=== PATIENT | female | born 1945 | race Caucasian/White ===

== ENCOUNTER → 2017-04-30 | Outpatient (CLI) | payer MEDICARE, OTHER ==
--- NOTE | 2017-05-03 14:32 | MM ---
Reason for exam: screening (asymptomatic). Last mammogram was performed 1 year and 5 months ago. History: Patient is postmenopausal and has history of breast cancer at age 55. Family history of breast cancer in mother at age 78. Radiation therapy, March 01, 2001. Lumpectomy of the left breast, 2001. Took hormonal contraceptives for 3 years beginning at age 21. Took tamoxifen for 5 years beginning at age 55. Physical Findings: A clinical breast exam by your physician is recommended on an annual basis and results should be correlated with mammographic findings. MG 3D Screening Mammo W/Cad Bilateral CC and MLO view(s) were taken. Prior study comparison: December 11, 2015, bilateral MG 3d screening mammo w/cad. July 15, 2011, bilateral digital screening mammo w/CAD. There are scattered fibroglandular densities. No suspicious abnormality. Post therapy changes on the left. ASSESSMENT: Benign, BI-RAD 2 RECOMMENDATION: Routine screening mammogram of both breasts in 1 year.
== END | disposition home or self-care (01) ==
LOC: RADMAMWWP 08:36
PROVIDERS: ATTEND Obstetrics & Gynecology
DX: Z12.31 Encounter for screening mammogram for malignant neoplasm of breast (principal)
CPT/HCPCS: 77063; 77067

== ENCOUNTER → 2017-06-01 | Outpatient (CLI) | payer MEDICARE, OTHER ==
--- NOTE | 2017-06-01 10:24 | US ---
EXAMINATION TYPE: US transvaginal DATE OF EXAM: 06/01/2017 COMPARISON: NONE CLINICAL HISTORY: C50.919 History of Breast Cancer. Hx of breast cancer in 2001. Was on Tamoxifen, b ut not any more. No pain or discomfort. Patient states it is routine. TECHNIQUE: Transvaginal (TV). Date of LMP: DIFFERENTIAL SPECIALIST, EXAM MEASUREMENTS: Uterus: 8.6 x 4.5 x 3.3 cm Endometrial Stripe: 0.4 cm Right Ovary: 3.0 x 1.7 x 1.9 cm Left Ovary: 3.6 x 2.0 x 2.3 cm 1. Uterus: Retroverted Heterogeneous. Multiple lesions seen within. hypoechoic anterior left = 1.0 x 1.3 x 0.9 cm. Isoechoic mid - 1.7 x 1.5 x1.7 cm. Hypoechoic left =0.7 x 1.0 x 0.8 cm. Mid hypo echoic = 0.9 x 1.3 x 0.7 cm 2. Endometrium: possible lesion mixed lesion seen at fundal region = 0.8 x 0.7 x 0.6 cm 3. Right Ovary: Multiple cystic appearing lesions seen. Largest = 2.3 x 1.6 x 1.4 cm 4. Left Ovary: Multiple follicles seen. Largest = 1.6 cm 5. Bilateral Adnexa: wnl 6. Posterior cul-de-sac: no free fluid Cervix- wnl Heterogeneous uterus is seen with several ill-defined hypoechoic areas likely reflecting scattered fi broids some are submucosal and subserosal in location including intramural lesions present. Endometri um is not suspiciously thickened on sagittal images. On transverse imaging there is 7 mm focal round prominence could reflect small polyp, consider short-term ultrasound follow-up in 2-3 months time or possible hysterosonograph evaluation. No free fluid is seen in pelvic cul-de-sac. Right ovary is abnormal for postmenopausal female with irregular thin septated 2.3 cm cyst identified . There are smaller adjacent cysts felt present by technologist in the left ovary. I am more suspicio us for a larger cyst that has thin and thick walled septations. IMPRESSION: Abnormal appearance of both ovaries for postmenopausal female, cystic neoplasm cannot be excluded. Advise gynecology oncology referral. Consider MRI to further evaluate. Intrauterine fibroid s felt present.
== END | disposition home or self-care (01) ==
LOC: RADUSWWP 08:57
PROVIDERS: ATTEND Obstetrics & Gynecology
DX: D25.9 Leiomyoma of uterus, unspecified (principal); C50.919 Malignant neoplasm of unspecified site of unspecified female breast
CPT/HCPCS: 76830

== ENCOUNTER → 2017-07-05 | Outpatient (CLI) | payer MEDICARE, OTHER ==
--- NOTE | 2017-07-05 10:03 | US ---
EXAMINATION TYPE: US transvaginal DATE OF EXAM: 07/05/2017 COMPARISON: 06/01/2017 CLINICAL HISTORY: 72-year-old female D52.9. [employer], follow up from last ultrasound. No pain or discomfo rt. Hx of breast cancer. Was on tamoxifen, but not on it any more. TECHNIQUE: Transvaginal (TV). Date of LMP: [employer], FINDINGS: EXAM MEASUREMENTS: Uterus: 6.1 x 4.3 x 3.2 cm Endometrial Stripe: 0.3 cm Right Ovary: 3.4 x 1.7 x 2.2 cm Left Ovary: 2.9 x 1.8 x 2.5 cm 1. Uterus: Retroverted Heterogenous. Right posterior fundal hypoechoic lesion = 0.8 x 0.7 x 0.6 cm. Mid anterior body Isoechoic lesion = 1.9 x 1.4 x 1.3 cm. Mid anterior uterine fundus hypoechoic lesion = 0.7 x 0.7 x 0.6 cm. Right anterior fundal hypoechoic lesion = 1.2 x 0.9 x 1.0 cm 2. Endometrium: At fundal region, appears heterogenous and asymmetrically thickened up to 5 mm along the left cornua. 3. Right Ovary: Multiple cysts are present, largest = 1.7 x 1.5 x 1.8 cm 4. Left Ovary: Multiple cystic appearing lesions seen. Largest = 1.8 x 2.0 x 1.2 cm 5. Bilateral Adnexa: wnl 6. Posterior cul-de-sac: no free fluid Cervix- wnl IMPRESSION: 1. Retroverted, heterogeneous fibroid uterus, largest focal fibroid measures 1.9 cm. These appear to be primarily intramural. 2. The left fundal endometrium is focally thickened at 5 mm. This area was previously measured at 8 x 6 x 4 mm. The remainder of the endometrium is uniform at 3 mm. Continued follow-up recommended as a small, early endometrial lesion, including the possibility of endometrial carcinoma, is not excluded. 3. Prominent bilateral ovarian cysts measuring up to 2.0 cm. Atypical for a postmenopausal female. Th arnulfo can also continue to be reassessed on the patient's follow-up.
== END | disposition home or self-care (01) ==
LOC: RADUSWWP 08:12
PROVIDERS: ATTEND Obstetrics & Gynecology
DX: D25.9 Leiomyoma of uterus, unspecified (principal); N83.201 Unspecified ovarian cyst, right side; N83.202 Unspecified ovarian cyst, left side
CPT/HCPCS: 76830

== ENCOUNTER → 2017-07-17 | Outpatient (CLI) | payer MEDICARE, OTHER ==
[2017-07-17 12:27] LABS: Basophils % (A) 0 %; Eosinophils # (A) 0.3 k/uL (0-0.7); Eosinophils % (A) 4 %; HCT 38.7 % (34.0-46.0); HGB 12.8 gm/dL (11.4-16.0); Lymphocytes # (A) 1.3 k/uL (1.0-4.8); Lymphocytes % (A) 20 %; MCH 30.4 pg (25.0-35.0); MCHC 33.2 g/dL (31.0-37.0); MCV 91.8 fL (80.0-100.0); Mean Platelet Volume 7.1; Monocytes # (A) 0.3 k/uL (0-1.0); Monocytes % (A) 5 %; Neutrophils # (A) 4.4 k/uL (1.3-7.7); Neutrophils % (A) 68 %; Platelet Count 320 k/uL (150-450); RBC 4.22 m/uL (3.80-5.40); RDW 13.8 % (11.5-15.5); WBC 6.5 k/uL (3.8-10.6)
== END | disposition home or self-care (01) ==
LOC: LABWHC1 11:49
PROVIDERS: ATTEND Obstetrics & Gynecology
DX: Z01.818 Encounter for other preprocedural examination (principal); Z01.812 Encounter for preprocedural laboratory examination
CPT/HCPCS: 36415; 85025; 93005

== ENCOUNTER 2017-07-23 07:19 | Day surgery (SDC) | payer MEDICARE, OTHER ==
[2017-07-20 11:59] VITALS: BMI 25.9
--- NOTE | 2017-07-22 20:09 | P.HPOB ---
History of Present Illness H&P Date: 07/22/17 Chief Complaint: Possible endometrial polyp This is a 72-year-old female 2 para 2 who presents for dilation and curettage with hysteroscopy secondary to possible endometrial polyp on pelvic ultrasound. Her ultrasound was initially done to evaluate her ovaries due to her history of breast cancer. Her ultrasound showed a complex right ovarian cyst with septation measuring 2.3 cm in addition there were multiple small fibroids noted and a possible mixed lesions seen in the fundal area measuring approximately 0.8 cm. A repeat ultrasound approximately 1 month later showed that the right ovarian cyst had gone down to 1.8 cm and the left ovarian cyst was about the same size. The area within the endometrium now only measured 5 mm but there was still concern for possible polyp because it was thickened more than the rest of her lining. She will follow-up with repeat ultrasounds for her ovarian cysts but wishes to proceed with dilation and curettage with hysteroscopy to further evaluate her endometrial lining and possible polyp. Obstetrical history: . History of 2 vaginal deliveries. Gynecologic history: No history of sexual transmitted diseases. Social history: She is . 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. Review of Systems Constitutional: Denies chills, Denies fever Eyes: denies blurred vision, denies pain Ears, nose, mouth and throat: Denies headache, Denies sore throat Cardiovascular: Denies chest pain, Denies shortness of breath Respiratory: Denies cough Gastrointestinal: Denies abdominal pain, Denies diarrhea, Denies nausea, Denies vomiting Genitourinary: Denies abnormal vaginal bleeding, Denies dysuria, Denies hematuria Menstruation: Reports postmenopausal Musculoskeletal: Reports myalgias Integumentary: Denies pruritus, Denies rash Neurological: Denies numbness, Denies weakness Psychiatric: Denies anxiety, Denies depression Endocrine: Denies fatigue, Denies weight change Past Medical History Past Medical History: Cancer, Hearing Disorder / Deafness Additional Past Medical History / Comment(s): BREAST CA 2002. YUHAAVIATAM LT EAR. History of Any Multi-Drug Resistant Organisms: None Reported Past Surgical History: Breast Surgery, Tubal Ligation Additional Past Surgical History / Comment(s): LT LUMPECTOMY, RADIATION. D&C, multiple. COLONOSCOPY. Bilateral cataract extraction with lens insert Past Anesthesia/Blood Transfusion Reactions: No Reported Reaction Past Psychological History: No Psychological Hx Reported Smoking Status: Former smoker Past Alcohol Use History: Occasional Past Drug Use History: None Reported - Past Family History Mother Family Medical History: Cancer Additional Family Medical History / Comment(s): BREAST CA Medications and Allergies Home Medications Medication Instructions Recorded Confirmed Type B-Complex (Unknown Dose) 1 tab PO DAILY 07/20/17 History Multivitamins, Thera [Multivitamin 1 tab PO DAILY 07/20/17 07/20/17 History (formulary)] Allergies Allergy/AdvReac Type Severity Reaction Status Date / Time No Known Allergies Allergy Verified 07/20/17 11:41 Exam Osteopathic Statement: *. No significant issues noted on an osteopathic structural exam other than those noted in the History and Physical/Consult. HEENT: Within normal limits Heart: Regular rate and rhythm Lungs: Clear to auscultation bilaterally Abdomen: Soft, nontender Pelvic exam: Uterus is small, nontender, with no adnexal masses or tenderness palpated. Extremities: Negative Homans Assessment and Plan (1) Endometrial thickening on ultrasound Status: Acute Code(s): R93.8 - ABNORMAL FINDINGS ON DIAGNOSTIC IMAGING OF BODY STRUCTURES SNOMED Code(s): 344659329 (2) Endometrium, polyp Narrative/Plan: Possible Status: Acute Code(s): N84.0 - POLYP OF CORPUS UTERI SNOMED Code(s): 19490761 Plan: Proceed with dilation and curettage with hysteroscopy. I have discussed the risks, benefits, and alternative therapies for the above- mentioned procedure and for both sedation/anesthesia as well as necessary blood products administration, if indicated, as they pertain to this patient. The patient has indicated her understanding and acceptance of the risks and procedures discussed.
[~2017-07-23 07:19] MED LIST: LACTATED RINGERS 1,000 ML IV SCH; MORPHINE SULFATE 2 MG/ML SYRINGE IV PRN; ONDANSETRON 4 MG/2 ML VIAL IVP PRN; Pre Op ABX Message 1 EACH MISC MISCELLANE ONE
[2017-07-23] MEDS ORDERED: LIDOCAINE 1% 20 ML VIAL (10MG/ML) FOR IV START INTRADERMA ONE (08:09)
[2017-07-23] MEDS ORDERED: LABETALOL 5 MG/ML VIAL MDV IV ONE (08:11)
[2017-07-23] MEDS ORDERED: MIDAZOLAM 2 MG/2 ML VIAL IV ONE ×2 (08:13→08:24)
[2017-07-23] MEDS ORDERED: fentaNYL (PF) 50 MCG/ML 2 ML AMP ONE (08:26)
[2017-07-23] MEDS ORDERED: MIDAZOLAM 2 MG/2 ML VIAL ONE (08:26)
[2017-07-23] MEDS ORDERED: KETOROLAC 30 MG/ML 1 ML VIAL ONE (08:26)
[2017-07-23] MEDS ORDERED: PROPOFOL 10 MG/ML 20 ML VIAL IV ONE (08:26)
--- NOTE | 2017-07-23 09:05 | P.OP ---
Date of Procedure: 07/23/17 Preoperative Diagnosis: Endometrial thickening, possible endometrial polyp Postoperative Diagnosis: Same Procedure(s) Performed: Dilation and curettage with hysteroscopy Anesthesia: other (Mask general) Surgeon: Janet Branch Estimated Blood Loss (ml): 5 Pathology: other (Endometrial curettings) Condition: stable Disposition: same day Indications for Procedure: This is a 72-year-old female 2 para 2 who presents for dilation and curettage with hysteroscopy secondary to possible endometrial polyp on pelvic ultrasound. Her ultrasound was initially done to evaluate her ovaries due to her history of breast cancer. Her ultrasound showed a complex right ovarian cyst with septation measuring 2.3 cm in addition there were multiple small fibroids noted and a possible mixed lesions seen in the fundal area measuring approximately 0.8 cm. A repeat ultrasound approximately 1 month later showed that the right ovarian cyst had gone down to 1.8 cm and the left ovarian cyst was about the same size. The area within the endometrium now only measured 5 mm but there was still concern for possible polyp because it was thickened more than the rest of her lining. She will follow-up with repeat ultrasounds for her ovarian cysts but wishes to proceed with dilation and curettage with hysteroscopy to further evaluate her endometrial lining and possible polyp. Operative Findings: A bicornate uterus is noted. Uterus is sounded to 8-1/2 cm. In the left horn there was a very small polyp noted. In the right horn there was what appeared to be a submucosal fibroid noted at the entrance to the horn. Otherwise very atrophic endometrium was noted both tubal ostia were visualized. Very scant endometrial tissue was obtained. Description of Procedure: The patient was taken to the operating room where she is placed in the dorsal lithotomy position. She was prepped and draped in the normal sterile fashion. Her bladder was drained with a catheter and then removed. Examination was performed under anesthesia. Uterus is found to be small, anteverted, with no adnexal masses palpated. Next a weighted speculum was placed in the patient's vagina and a right angle retractor was used to visualize the cervix. The anterior lip of the cervix was grasped with a single-tooth tenaculum. Next the cervix was gently dilated with a L[place] dilator and then the uterus was sounded to 8-1/2 cm. Next the cervix was gently dilated further with L[place]ola dilators until a hysteroscope could be passed. Hysteroscopy was performed using normal saline. The above-noted findings were made and pictures were taken. Next a polyp forceps was introduced and a very scant amount of tissue was obtained. Next a medium-size sharp curet was introduced and sharp curettage was performed until a gritty texture was noted. Minimal further tissue was obtained. The tissue was removed from the vagina and sent to pathology. Next the single- tooth tenaculum was removed and no bleeding was noted. All instruments are removed from the vagina. All sponge and needle counts are correct. The patient is then taken to the recovery room in stable condition.
[2017-07-23 09:16] VITALS: TEMP 96.8
[2017-07-23 09:45] VITALS: RESP 18
[2017-07-23 10:13] VITALS: BP 173/76; PULSE 59
== END 2017-07-23 10:29 | disposition home or self-care (01) ==
LOC: OR 07:19
PROVIDERS: ATTEND Obstetrics & Gynecology
DX: N84.0 Polyp of corpus uteri (principal); N85.8 Other specified noninflammatory disorders of uterus; R93.8 Abnormal findings on diagnostic imaging of other specified body structures; Q51.3 Bicornate uterus; N83.201 Unspecified ovarian cyst, right side; N83.202 Unspecified ovarian cyst, left side; D25.9 Leiomyoma of uterus, unspecified; Z85.3 Personal history of malignant neoplasm of breast; H91.92 Unspecified hearing loss, left ear; Z79.899 Other long term (current) drug therapy; Z96.1 Presence of intraocular lens; Z87.891 Personal history of nicotine dependence
CPT/HCPCS: 88305; 58558; J2250; J2405; J3010; J1885; J2704

== ENCOUNTER → 2017-09-06 | Outpatient (CLI) | payer MEDICARE, OTHER ==
--- NOTE | 2017-09-06 12:03 | US ---
EXAMINATION TYPE: US transvaginal DATE OF EXAM: 09/06/2017 COMPARISON: 07/05/2017 CLINICAL HISTORY: 72-year-old female N83.20 Previous Ovarian Cysts. Post menopausal patient, follow u p previous abnormal, patient states no symptoms, D&C 1 month ago, 2, para 2, history of breas t CA TECHNIQUE: Transvaginal exam only per ordering physician. Date of LMP: 30 years ago Findings: Uterus: Retroverted measuring 6.0 x 3.2 x 4.6 cm Endometrial Stripe: 0.3 cm Right Ovary: 2.8 x 2.0 x 1.8 cm Left Ovary: 2.8 x 2.7 x 2.2 cm 1. Uterus: retroverted, heterogeneous with suggestive of underlying fibroids, largest measuring 1.8 cm along the anterior uterine body, intramural in location. Multiple hypoechoic and isoechoic lesions with largest mid anterior = 1.7 x 1.1 x 1.8cm 2. Endometrium: wnl 3. Right Ovary: multiple cysts, largest = 1.4cm 4. Left Ovary: multiple cysts, largest = 2.0cm 5. Bilateral Adnexa: wnl 6. Posterior cul-de-sac: wnl IMPRESSION: 1. Retroverted fibroid uterus. Largest fibroid is intramural along the anterior body measuring 1.8 cm . 2. Thin endometrial stripe. The previously seen asymmetric thickening is no longer appreciated. 3. Bilateral ovarian cysts. The largest on the right measures 1.4 cm (versus 1.8 cm, previously) and largest on the left measuring 2.0 cm (unchanged). Annual surveillance can be considered.
== END | disposition home or self-care (01) ==
LOC: RADUSWWP 08:05
PROVIDERS: ATTEND Obstetrics & Gynecology
DX: N83.201 Unspecified ovarian cyst, right side (principal); N83.202 Unspecified ovarian cyst, left side; D25.1 Intramural leiomyoma of uterus
CPT/HCPCS: 76830

== ENCOUNTER → 2018-05-26 | Outpatient (CLI) | payer MEDICARE ==
--- NOTE | 2018-05-27 11:51 | MM ---
Reason for exam: screening (asymptomatic). Last mammogram was performed 1 year and 1 month ago. History: Patient is postmenopausal and has history of breast cancer at age 55. Family history of breast cancer in mother at age 78. Radiation therapy, March 01, 2001. Lumpectomy of the left breast, 2001. Took hormonal contraceptives for 3 years beginning at age 21. Took tamoxifen for 5 years beginning at age 55. Physical Findings: A clinical breast exam by your physician is recommended on an annual basis and results should be correlated with mammographic findings. MG 3D Screening Mammo W/Cad Bilateral CC and MLO view(s) were taken. Prior study comparison: April 30, 2017, bilateral MG 3d screening mammo w/cad. December 11, 2015, bilateral MG 3d screening mammo w/cad. There are scattered fibroglandular densities. No suspicious abnormality. Left breast post threrapy change. No significant changes when compared with prior studies. ASSESSMENT: Benign, BI-RAD 2 RECOMMENDATION: Routine screening mammogram of both breasts in 1 year.
== END ==
LOC: RADMAMWWP 11:31
PROVIDERS: ATTEND Obstetrics & Gynecology
DX: Z12.31 Encounter for screening mammogram for malignant neoplasm of breast (principal)
CPT/HCPCS: 77063; 77067

== ENCOUNTER → 2019-08-28 | Outpatient (CLI) | payer MEDICARE ==
--- NOTE | 2019-08-30 11:01 | MM ---
Reason for exam: screening (asymptomatic). Last mammogram was performed 1 year and 3 months ago. History: Patient is postmenopausal and has history of breast cancer at age 55. Family history of breast cancer in mother at age 78. Radiation therapy, March 01, 2001. Lumpectomy of the left breast, 2001. Took hormonal contraceptives for 3 years beginning at age 21. Took tamoxifen for 5 years beginning at age 55. Physical Findings: A clinical breast exam by your physician is recommended on an annual basis and results should be correlated with mammographic findings. MG 3D Screening Mammo W/Cad Bilateral CC and MLO view(s) were taken. Prior study comparison: May 26, 2018, bilateral MG 3d screening mammo w/cad. April 30, 2017, bilateral MG 3d screening mammo w/cad. There are scattered fibroglandular densities. No significant changes when compared with prior studies. ASSESSMENT: Benign, BI-RAD 2 RECOMMENDATION: Routine screening mammogram of both breasts in 1 year.
== END | disposition home or self-care (01) ==
LOC: RADMAMWWP 13:08
PROVIDERS: ATTEND Obstetrics & Gynecology
DX: Z12.31 Encounter for screening mammogram for malignant neoplasm of breast (principal)
CPT/HCPCS: 77063; 77067

== ENCOUNTER 2020-02-21 18:16 | Emergency (ER) | payer MEDICARE ==
[2020-02-21] MEDS ORDERED: DIPH,PERTUS(ACELL)TETVAC-LF 0.5 ML VIAL IM ONE (18:37)
[2020-02-21] MEDS ORDERED: BACITRACIN OINT 1 EACH PACKET TOPICAL ONE (18:37)
[2020-02-21] MEDS ORDERED: LIDOCAINE 1% INJ 10MG/ML (20 ML MDV) SQ ONE (18:37)
[2020-02-21 19:03] VITALS: TEMP 97.9
--- NOTE | 2020-02-21 19:26 | CT ---
EXAMINATION TYPE: CT brain brant sánchez con DATE OF EXAM: 02/21/2020 COMPARISON: None HISTORY: Fall, head laceration. CT DLP: 1287.4 mGycm Automated exposure control for dose reduction was used. Ventricles have normal size. There is no mass effect nor midline shift. There is no sign of intracran ial hemorrhage. Calvarium is intact. There is no evidence of cerebral edema. There is right lateral f rontal scalp laceration and soft tissue swelling. The cervical vertebra have normal alignment. There is degenerative spur formation anteriorly from C3 to C7. Facet joints are intact. There is mild multilevel cervical hypertrophic facet arthropathy. The re is no evidence of a fracture. There is normal aeration of the mastoid sinuses. The skull base is i ntact. IMPRESSION: Spondylotic changes in the cervical spine. No fracture. Negative CT scan of the brain. No evidence of acute intracranial abnormality. Right lateral frontal scalp laceration and hematoma.
[2020-02-21] MEDS ORDERED: cloNIDine HCL 0.2 MG TAB PO STA (19:50)
[2020-02-21 20:04] VITALS: RESP 18
[2020-02-21 20:33] VITALS: BP 233/111; PULSE 92
--- NOTE | 2020-02-21 20:41 | ED ---
Fall HPI - General Chief Complaint: Fall Stated Complaint: fall/head lac Time Seen by Provider: 02/21/20 18:26 Source: patient Mode of arrival: wheelchair - History of Present Illness Initial Comments: Patient is a 74-year-old female presenting to the emergency department after falling at her house just prior to arrival. Patient states she was carrying in groceries from her car when her big toe got caught on the lower doorway and she fell forward hitting the right side of her forehead on the wall in front of her. There was no loss of consciousness, she denies being on blood thinners. Patient has an obvious laceration to the right side of her forehead extending into her scalp. She admits to a mild headache, no dizziness, no blurry vision. She does admit to some mild left great toe pain but states she has full range of motion and states it feels "fine." She denies any abdominal pain, no nausea or vomiting. She denies any other pain from this fall other than her forehead. She has no further complaints at this time. On arrival to the ER, patient was hypertensive at 219/112, respiratory rate is are normal. Patient states she has never taken medication for hypertension but states she has not seen a regular doctor in many years. - Related Data Home Medications Medication Instructions Recorded Confirmed Multivitamins, Thera [Multivitamin 1 tab PO DAILY 07/20/17 07/20/17 (formulary)] Allergies Allergy/AdvReac Type Severity Reaction Status Date / Time No Known Allergies Allergy Verified 02/21/20 20:35 Review of Systems ROS Statement: Those systems with pertinent positive or pertinent negative responses have been documented in the HPI. ROS Other: All systems not noted in ROS Statement are negative. Past Medical History Past Medical History: Cancer History of Any Multi-Drug Resistant Organisms: None Reported Additional Past Surgical History / Comment(s): lumpectomy, D&C Past Psychological History: No Psychological Hx Reported Smoking Status: Never smoker Past Alcohol Use History: Daily Past Drug Use History: None Reported General Exam - General Exam Comments Initial Comments: GENERAL: Patient is well-developed and well-nourished. Patient is nontoxic and in no acute distress. HEAD: Patient has an obvious laceration on the right side of her forehead extending up frausto into the right scalp area. There is some mild bleeding that is being controlled with a bandage at this time. She does have a small hematoma on the right forehead as well. No signs of basal skull fracture. No other areas of hematoma.. EYES: Pupils equal round and reactive to light, extraocular movements intact, sclera anicteric, conjunctiva are normal. Eyelids were unremarkable. ENT: TMs normal, nares patent, oropharynx clear without exudates. Moist mucous membranes. NECK: Normal range of motion, supple without lymphadenopathy or JVD. No midline tenderness. LUNGS: Unlabored respirations. Breath sounds clear to auscultation bilaterally and equal. No wheezes rales or rhonchi. HEART: Regular rate and rhythm without murmurs, rubs or gallops. ABDOMEN: Soft, nontender, normoactive bowel sounds. No guarding, no rebound. No masses appreciated. : Deferred MUSCULOSKELETAL: Mild pain with range of motion of the left great toe, no obvious swelling or deformity. Normal extremities with adequate strength and normal range of motion, no pitting or edema. No clubbing or cyanosis. NEUROLOGICAL: Patient is alert and oriented x 3. Motor and sensory are also intact. Cranial nerves II through XII grossly intact. Symmetrical smile. Normal speech, normal gait. PSYCH: Normal mood, normal affect. SKIN: Warm, Dry, normal turgor. Patient has a 12 cm laceration starting at her right side of the forehead extending upward into the right side of her scalp. There is some mild to moderate bleeding, this is controlled with pressure and a bandage. Limitations: no limitations Course Vital Signs 02/21/20 02/21/20 02/21/20 18:17 19:00 20:03 Temperature 98.9 F 97.9 F Pulse Rate 105 H 87 94 Respiratory 20 16 18 Rate Blood Pressure 219/120 248/127 250/112 O2 Sat by Pulse 98 96 97 Oximetry 02/21/20 20:32 Temperature Pulse Rate 92 Respiratory 18 Rate Blood Pressure 233/111 O2 Sat by Pulse 97 Oximetry Procedures - Laceration Laceration #1 Consent Obtained: verbal consent Indication: laceration Site: scalp (Right side of scalp extending into the right forehead.) Size (cm): 12 Description: linear Depth: simple, single layer Anesthetic Used: lidocaine 1% Anesthesia Technique: local infiltration Amount (mls): 9 Pre-repair: irrigated extensively Type of Sutures: nylon Size of Sutures: 5-0 Number of Sutures: 7 Technique: simple, interrupted Patient Tolerated Procedure: well Additional Comments: 8 jeannie were used to close part of the wound in the scalp area, 7 sutures were used to close the rest of the wound on the forehead. Patient tolerated procedure well. Medical Decision Making - Medical Decision Making Patient is 74-year-old female here after she tripped and fell forward hitting her right side of her forehead on the wall. She did have an extensive laceration to the right side of her scalp and forehead, measuring 12 cm. This area was cleaned, closed with 8 jeannie and 7 sutures. Patient tolerated procedure well. CT of the brain and C-spine show no fractures of the C-spine, no evidence of acute intracranial abnormality, does show a right lateral frontal scalp laceration and hematoma. Patient was hypertensive upon arrival, continue monitoring her blood pressure did remain hypertensive. She states she has never taken medication for hypertension. I did give her 0.2 clonidine in the ER, I did want her to stay to be monitored for decrease her blood pressure however patient wants to go home. She states that her headache is very minimal, she has no other symptoms at this time and wants to go home to rest. She states she will follow-up with her PCP regarding the hypertension. Patient is stable for discharge. She will have stitches and jeannie removed in approximately 7-10 days. Patient is in agreement with this plan of care. Return parameters were discussed with the patient she verbalized understanding. Patient is being drove home by her . Case discussed with Dr. Sotelo. Disposition Clinical Impression: Fall, Traumatic hematoma of forehead, Laceration of forehead, right, complicated Disposition: HOME SELF-CARE Condition: Stable Instructions (If sedation given, give patient instructions): Care For Your Stitches (ED) Additional Instructions: Please return to the Emergency Department if symptoms worsen or any other concerns. Keep wound clean and dry. May wash hair as normal. Stitches and jeannie need to be removed in 7-10 days. Please follow-up with your regular doctor regarding hypertension. Is patient prescribed a controlled substance at d/c from ED?: No Referrals: None,Stated [Primary Care Provider] - 1-2 days Didi Daly MD [STAFF PHYSICIAN] - 1-2 days Katherine Liriano MD [REFERRING] - 1-2 days
== END 2020-02-21 20:46 | disposition home or self-care (01) ==
LOC: EC 18:16
DX: S01.01XA Laceration without foreign body of scalp, initial encounter (principal); S01.81XA Laceration without foreign body of other part of head, initial encounter; I10 Essential (primary) hypertension; Z23 Encounter for immunization; Z85.9 Personal history of malignant neoplasm, unspecified; W01.198A Fall on same level from slipping, tripping and stumbling with subsequent striking against other object, initial encounter; Y93.89 Activity, other specified; Y92.009 Unspecified place in unspecified non-institutional (private) residence as the place of occurrence of the external cause
CPT/HCPCS: 72125; 70450; 90715; 99283; 12004; 90471; J2001

== ENCOUNTER → 2020-05-10 | Outpatient (CLI) | payer MEDICARE ==
--- NOTE | 2020-05-10 14:57 | XR ---
EXAM TYPE: LUMBAR SPINE X RAY SERIES COMPARISON: NONE HISTORY: Pain TECHNIQUE: 4 views are submitted. FINDINGS: Alignment is anatomic. The pedicles are intact. The transverse processes are intact. There is supe rior endplate compression deformities at T12, L1, L2 and to a lesser extent L3 of indeterminate age. No prior exams for comparison. Diffuse osteopenia. Severe multilevel degenerative disc disease and fa cet arthropathy. Foraminal encroachment L4-5 and L5-S1. Vascular calcification seen. IMPRESSION: 1. Diffuse osteopenia with severe multilevel degenerative disc disease. 2. Age-indeterminate multiple superior endplate mild compression fractures. Correlate clinically.
== END | disposition home or self-care (01) ==
LOC: RADXRMAIN 14:27
PROVIDERS: ATTEND Family Medicine
DX: M51.36 Other intervertebral disc degeneration, lumbar region (principal); M85.88 Other specified disorders of bone density and structure, other site; S32.000A Wedge compression fracture of unspecified lumbar vertebra, initial encounter for closed fracture
CPT/HCPCS: 72100

== ENCOUNTER → 2020-08-29 | Outpatient (CLI) | payer MEDICARE ==
--- NOTE | 2020-08-30 12:21 | MM ---
Reason for exam: screening (asymptomatic). Last mammogram was performed 1 year ago. History: Patient is postmenopausal, has history of breast cancer at age 55, and history of other cancer. Family history of breast cancer in mother at age 78. Radiation therapy, March 01, 2001. Lumpectomy of the left breast, 2001. Took hormonal contraceptives for 3 years beginning at age 21. Took tamoxifen for 5 years beginning at age 55. Physical Findings: A clinical breast exam by your physician is recommended on an annual basis and results should be correlated with mammographic findings. MG 3D Screening Mammo W/Cad Bilateral CC and MLO view(s) were taken. Prior study comparison: August 28, 2019, bilateral MG 3d screening mammo w/cad. May 26, 2018, bilateral MG 3d screening mammo w/cad. There are scattered fibroglandular densities. Post operative left change. ASSESSMENT: Negative, BI-RAD 1 RECOMMENDATION: Routine screening mammogram of both breasts in 1 year.
== END | disposition home or self-care (01) ==
LOC: RADMAMWWP 08:01
PROVIDERS: ATTEND Obstetrics & Gynecology
DX: Z12.31 Encounter for screening mammogram for malignant neoplasm of breast (principal); Z78.0 Asymptomatic menopausal state; Z85.3 Personal history of malignant neoplasm of breast; Z80.3 Family history of malignant neoplasm of breast
CPT/HCPCS: 77063; 77067

== ENCOUNTER 2020-09-13 08:25 | Day surgery (SDC) | payer MEDICARE ==
[2020-09-10 14:35] VITALS: BMI 24.5
[~2020-09-13 08:25] MED LIST changes: +LIDOCAINE 1% (10MG/ML) FOR IV START INTRADERMA PRN; -MORPHINE SULFATE 2 MG/ML SYRINGE IV PRN; -ONDANSETRON 4 MG/2 ML VIAL IVP PRN; -Pre Op ABX Message 1 EACH MISC MISCELLANE ONE
[2020-09-13] MEDS ORDERED: LACTATED RINGERS 1,000 ML IV ONE (08:41)
[2020-09-13 08:48] VITALS: TEMP 97.8
[2020-09-13] MEDS ORDERED: PROPOFOL 10 MG/ML 20 ML VIAL IV ONE (09:32)
--- NOTE | 2020-09-13 09:45 | P.PCN ---
Date of Procedure: 09/13/20 Procedure(s) Performed: BRIEF HISTORY: Patient is a 75-year-old pleasant white female scheduled for an elective colonoscopy as a part of screening for colorectal neoplasia. Last colonoscopy was 10 years ago. PROCEDURE PERFORMED: Colonoscopy. PREOPERATIVE DIAGNOSIS: Screening for colon cancer. IV sedation per Anesthesia. PROCEDURE: After informed consent was obtained, the patient, was brought into the endoscopy unit. IV sedation was administered by Anesthesia under continuous monitoring. Digital rectal examination was normal. Initially the Olympus CF-160 flexible video colonoscope was then inserted in the rectum, gradually advanced into the cecum without any difficulty. Careful examination was performed as the scope was gradually being withdrawn. Ileocecal valve and the appendiceal orifice were visualized and appeared normal. Prep was excellent. Mucosa of the cecum, ascending colon, transverse colon, descending colon, sigmoid colon, and rectum appeared normal. RS sigmoid diverticulosis seen. Retroflexion was performed in the rectum and small internal hemorrhoids were seen. The patient tolerated the procedure well. IMPRESSION: Normal-appearing colon from rectum to cecum with no evidence of colorectal neoplasia . Moderate sigmoid diverticulosis Small internal hemorrhoids RECOMMENDATIONS: Findings of this examination were discussed with the patient as well as her family. She was advised to be a high-fiber diet..
[2020-09-13 10:03] VITALS: BP 166/75; PULSE 78; RESP 17
== END 2020-09-13 10:26 | disposition home or self-care (01) ==
LOC: ORWHC2ENDO 08:25
PROVIDERS: ATTEND Internal Medicine Gastroenterology
DX: Z12.11 Encounter for screening for malignant neoplasm of colon (principal); K57.30 Diverticulosis of large intestine without perforation or abscess without bleeding; K64.8 Other hemorrhoids; I10 Essential (primary) hypertension; Z87.891 Personal history of nicotine dependence; Z85.3 Personal history of malignant neoplasm of breast; Z79.891 Long term (current) use of opiate analgesic; Z79.899 Other long term (current) drug therapy
CPT/HCPCS: J2704; G0121

== ENCOUNTER → 2021-08-07 | Outpatient (CLI) | payer MEDICARE ==
--- NOTE | 2021-08-08 11:48 | CT ---
CT angiogram bilateral lower extremities HISTORY: Pain in legs Helical acquisition performed pre- and postadministration of 70 cc Isovue-370 IV from the level of th e distal thoracic aorta through the lower extremities. Three-dimensional reconstructions performed on an alternate workstation and reviewed. No comparisons. Automated exposure control for dose reduction , DLP 2165 mGycentimeters There are atheromatous changes of the abdominal aorta, common iliac, internal and external iliac and common femoral vessels. The celiac axis shows a stenosis with proximally with poststenotic dilatation , is patent. The superior mesenteric artery is widely patent. Bilateral renal arteries enhance, there is atheromatous stenosis of the proximal left renal artery and proximal right renal artery. The infe rior mesenteric artery is patent. Common iliac arteries, external iliac arteries are patent, internal iliac artery on the right shows e nhancement, internal iliac artery on the left shows proximal occlusion, there may be some retrograde enhancement. On the left, the deep and superficial femoral arteries are patent, suspect some atheromatous plaque a t the proximal superficial femoral artery, there are tandem stenoses of the superficial femoral arter y on the left which is diminutive. Atheromatous changes extend to the level of Monroe's canal, there is occlusion at this level, reconstitution of the popliteal artery is noted above the level of the kn ee. The anterior tibial artery and posterior tibial artery are occluded. Peroneal artery extends phyllis pherally to the level of the ankle. There is extensive subcutaneous edema present. Soft tissue calcif ications are noted within the subcutaneous soft tissues. On the right the proximal superficial femoral artery is occluded. Atheromatous changes are present. T he deep femoral artery is patent. There is reconstitution of popliteal artery above the level of the knee. Atheromatous changes present in the popliteal artery. The peroneal artery is patent. Anterior t ibial artery enhances proximally is not well seen to enhance beyond this level. Posterior tibial maty ry is occluded. Some segmental reconstitution present at the anterior tibial artery peripherally, rec onstitution of the dorsalis pedis is present distally. Subcutaneous edema changes present. Lung bases are clear. Kidneys enhance symmetrically. No evident abdominal mass or ascites. There is n o retroperitoneal adenopathy. No bowel obstruction. Diverticular changes are extensive within the col on especially the sigmoid region. Uterus and adnexal structures are remarkable for cystic changes wit hin the ovaries somewhat symmetric fashion, calcification is noted associated with the right ovary. U rinary bladder is normal. There is no pelvic adenopathy or free fluid. Urinary bladder is within norm al limits. IMPRESSION: Extensive peripheral vascular occlusive disease as described.
== END | disposition home or self-care (01) ==
LOC: RADCTMAIN 15:49
PROVIDERS: ATTEND Family Medicine
DX: I70.213 Atherosclerosis of native arteries of extremities with intermittent claudication, bilateral legs (principal)
CPT/HCPCS: 82565; 84520; 36415; 73706; Q9967

== ENCOUNTER → 2021-09-01 | Outpatient (CLI) | payer MEDICARE ==
--- NOTE | 2021-09-02 11:32 | MM ---
Reason for Exam: Screening (asymptomatic). Last screening mammogram was performed 12 month(s) ago. Patient History: Menarche at age 9. First Full-Term at age 21. Postmenopausal. Breast cancer, age 55. Other cancer. Previous chest radiation therapy at age 55. Hormonal Contraceptives for 3 years from age 21 until age 24. Tamoxifen for 5 years from age 55 until age 60. 2001, Lumpectomy on the Left side. 03/01/2001, Radiation Therapy. Mother had breast cancer, age 78. Prior Study Comparison: 05/26/2018 Bilateral Screening Mammogram, [facility]. 08/28/2019 Bilateral Screening Mammogram, [facility]. 08/29/2020 Bilateral Screening Mammogram, [facility]. Tissue Density: There are scattered fibroglandular densities. Findings: Analyzed By CAD. There is no suspicious group of microcalcifications or new suspicious mass in either breast. Posttherapy changes of left breast. No significant changes from prior examination. Overall Assessment: Benign, BI-RAD 2 Management: Screening Mammogram of both breasts in 1 year. A clinical breast exam by your physician is recommended on an annual basis and results should be correlated with mammographic findings. Electronically signed and approved by: Volodymyr Lopez D.O.
== END | disposition home or self-care (01) ==
LOC: RADMAMWWP 14:44
PROVIDERS: ATTEND Obstetrics & Gynecology
DX: Z12.31 Encounter for screening mammogram for malignant neoplasm of breast (principal); Z80.3 Family history of malignant neoplasm of breast; Z78.0 Asymptomatic menopausal state
CPT/HCPCS: 77063; 77067

== ENCOUNTER 2021-12-05 05:51 | Day surgery (SDC) | payer MEDICARE ==
[2021-12-04 10:07] VITALS: BMI 24.1
[2021-12-05] MEDS ORDERED: SODIUM CHLORIDE 0.9% 1,000 ML in EMPTY BAG 1 BAG IV ONE (05:53)
[2021-12-05] MEDS ORDERED: SODIUM CHLORIDE 0.9% 1,000 ML IV ONE (06:10)
[2021-12-05 06:34] LABS: Basophils # (A) 0.1 k/uL (0-0.2); Basophils % (A) 1 %; Eosinophils # (A) 0.5 k/uL (0-0.7); Eosinophils % (A) 10 %; HCT 35.6 % (34.0-46.0); HGB 12.4 gm/dL (11.4-16.0); Lymphocytes # (A) 1.1 k/uL (1.0-4.8); Lymphocytes % (A) 21 %; MCH 32.4 pg (25.0-35.0); MCHC 34.9 g/dL (31.0-37.0); MCV 92.8 fL (80.0-100.0); Mean Platelet Volume 7.7; Monocytes # (A) 0.3 k/uL (0-1.0); Monocytes % (A) 6 %; Neutrophils # (A) 3.3 k/uL (1.3-7.7); Neutrophils % (A) 61 %; Platelet Count 371 k/uL (150-450); RBC 3.84 m/uL (3.80-5.40); RDW 12.6 % (11.5-15.5); WBC 5.5 k/uL (3.8-10.6)
[2021-12-05 06:50] LABS: African American GFR (CKD) >90 (>60 ml/min/1.73 sqM); Anion Gap 6 mmol/L; Blood Urea Nitrogen 16 mg/dL (7-17); Calcium 8.7 mg/dL (8.4-10.2); Carbon Dioxide 26 mmol/L (22-30); Chloride 101 mmol/L (98-107); Glucose 93 mg/dL (74-99); Non-African American GFR(CKD) 84 (>60 ml/min/1.73 sqM); Potassium 4.2 mmol/L (3.5-5.1); Sodium 133 mmol/L (137-145)
[2021-12-05 06:55] VITALS: RESP 16; TEMP 99
--- NOTE | 2021-12-05 07:38 | P.GSHP ---
History of Present Illness H&P Date: 12/05/21 Chief Complaint: lower extremity pain with ambulation 76 year old female with history of pain with ambulation after 1-1.5 blocks. States pain in her right calf and sometimes at night as well. She had arterial doppler which demonstrated significant occlusive disease of the bilateral superficial femoral arteries. She then was sent for CTA with runoff that showed occlusion of the right SFA with reconstitution above knee. She presents today for angiogram and possible atherectomy, PTBA or stenting. She denies any fevers, chills, chest pain or shortness of breath. - Review of Systems All systems: negative (what is mentioned in the PMH or HPI) Past Medical History Past Medical History: Cancer, Hypertension Additional Past Medical History / Comment(s): BREAST CANCER, History of Any Multi-Drug Resistant Organisms: None Reported Past Surgical History: Breast Surgery, Tonsillectomy Additional Past Surgical History / Comment(s): LT lumpectomy, D&C, COLONOSCOPY, BILAT CATARACTS REMOVED WITH LENS IMPLANTS Past Anesthesia/Blood Transfusion Reactions: No Reported Reaction Smoking Status: Never smoker - Past Family History Mother Family Medical History: No Reported History Medications and Allergies Home Medications Medication Instructions Recorded Confirmed Type Multivitamins, Thera [Multivitamin 1 tab PO DAILY 07/20/17 12/05/21 History (formulary)] Biotin 5 mg PO DAILY 09/10/20 12/05/21 History Calcium Carbonate [Calcium] 600 mg PO DAILY 09/10/20 12/05/21 History Cholecalciferol [Vitamin D3 (25 50 mcg PO DAILY 09/10/20 12/05/21 History Mcg = 1000 Iu)] Losartan/Hydrochlorothiazide 1 tab PO DAILY 09/10/20 12/05/21 History [Losartan-Hctz 100-25 mg Tab] Magnesium 400 mg PO DAILY 09/10/20 12/05/21 History amLODIPine BESYLATE 5 mg PO QAM 09/10/20 12/05/21 History Allergies Allergy/AdvReac Type Severity Reaction Status Date / Time No Known Allergies Allergy Verified 12/05/21 06:16 Surgical - Exam Vital Signs Temp Pulse Resp BP Pulse Ox 99 F 94 16 177/74 94 L 12/05/21 06:50 12/05/21 06:50 12/05/21 06:50 12/05/21 06:50 12/05/21 06:50 - General well developed, well nourished, no distress - Eyes PERRL, normal ocular movement - ENT normal pinna - Neck no masses - Respiratory normal expansion, normal respiratory effort - Cardiovascular Rhythm: regular - Abdomen Abdomen: soft, non tender - Integumentary no rash, no growths - Neurologic normal coordination, normal sensation - Musculoskeletal normal gait - Psychiatric oriented to time, oriented to person, oriented to place Results - Labs 12/05/21 06:20 12/05/21 06:20 Abnormal Lab Results - Last 24 Hours (Table) 12/05/21 Range/Units 06:20 Sodium 133 L (137-145) mmol/L Diabetes panel 12/05/21 Range/Units 06:20 Sodium 133 L (137-145) mmol/L Potassium 4.2 (3.5-5.1) mmol/L Chloride 101 (98-107) mmol/L Carbon Dioxide 26 (22-30) mmol/L BUN 16 (7-17) mg/dL Creatinine 0.69 (0.52-1.04) mg/dL Glucose 93 (74-99) mg/dL Calcium 8.7 (8.4-10.2) mg/dL Calcium panel 12/05/21 Range/Units 06:20 Calcium 8.7 (8.4-10.2) mg/dL Pituitary panel 12/05/21 Range/Units 06:20 Sodium 133 L (137-145) mmol/L Potassium 4.2 (3.5-5.1) mmol/L Chloride 101 (98-107) mmol/L Carbon Dioxide 26 (22-30) mmol/L BUN 16 (7-17) mg/dL Creatinine 0.69 (0.52-1.04) mg/dL Glucose 93 (74-99) mg/dL Calcium 8.7 (8.4-10.2) mg/dL Adrenal panel 12/05/21 Range/Units 06:20 Sodium 133 L (137-145) mmol/L Potassium 4.2 (3.5-5.1) mmol/L Chloride 101 (98-107) mmol/L Carbon Dioxide 26 (22-30) mmol/L BUN 16 (7-17) mg/dL Creatinine 0.69 (0.52-1.04) mg/dL Glucose 93 (74-99) mg/dL Calcium 8.7 (8.4-10.2) mg/dL Assessment and Plan Assessment: 1. Lower extremity claudication [place] 3 2. Bilateral superficial femoral artery occlusive disease 3. HTN Plan: To the endovascular suite for right lower extremity atherectomy and possible stenting.
[2021-12-05] MEDS ORDERED: LIDOCAINE 1% INJ 10MG/ML (30 ML VIAL-PF) SQ ONE ×2 (07:43→07:45)
[2021-12-05] MEDS ORDERED: MIDAZOLAM 2 MG/2 ML VIAL IV ONE ×2 (07:44→07:49)
[2021-12-05] MEDS ORDERED: fentaNYL (PF) 50 MCG/ML 2 ML AMP ONE (07:52)
[2021-12-05] MEDS: fentaNYL (PF) 50 MCG/ML 2 ML AMP IV ONE ×2 (07:55→08:45)
[2021-12-05] MEDS ORDERED: HEPARIN SODIUM 1,000 UN/ML (10ML VL) ONE (08:03)
[2021-12-05] MEDS ORDERED: HEPARIN SODIUM 1,000 UN/ML (10ML VL) IV ONE (08:05)
[2021-12-05] MEDS ORDERED: CLOPIDOGREL 75 MG TAB ONE (09:02)
[2021-12-05] MEDS ORDERED: IOPAMIDOL-250 100ML BTL INTRAARTER ONE (09:03)
[2021-12-05] MEDS ORDERED: CLOPIDOGREL 75 MG TAB PO ONE (09:03)
--- NOTE | 2021-12-05 09:24 | P.OP ---
Date of Procedure: 12/05/21 Description of Procedure: Pre-Op Dx: Right lower extremity claudication/ischemia Carson classification 3, right superficial femoral artery occlusion Post-Op Dx: Right lower extremity claudication, Carson classification 3, right superficial femoral artery revascularization Procedure: 1. Ultrasound guided left femoral artery access 2. Right ileal femoral, femoral popliteal and tibial selective angiogram 3. Percutaneous directional atherectomy of right superficial femoral artery with Hawk One 6M device 4. Percutaenous balloon angioplasty with 5 x 250 mm and 5 x 60 mm Impact drug-eluting balloon 5. Percutaneous closure of left femoral artery with Vascade device Surgeon: Corey Do DO Anesthesia: conscious sedation with local x 79 mins EBL: 10 mL Complications: none Condition: Stable Findings: Right superficial femoral artery occlusion with reconstitution at the above-knee popliteal. Right anterior tibial artery is calcified with some stenotic areas noted throughout with reconstitution from the peroneal artery towards the ankle. Two-vessel to the foot noted anterior tibial and posterior tibial artery Indication for procedure: 76-year-old female with history of claudication stated that she was unable to walk more than 100-150 feet without significant pain in her right calf. She presents today after CTA demonstrating occlusive disease of the right superficial femoral artery. Operative narrative: After written and informed consent was obtained the patient all risks, benefits and complications were described patient is brought to the [facility] and laid supine position. The area of the left groin was prepped and draped in usual sterile fashion. Timeout was performed in normal fashion. Utilizing ultrasound the left femoral artery was accessed and a 6 F sheath was placed. 035 Glidewire was then placed into the aorta followed by an RBI catheter and the right iliac was accessed in an up and over fashion. Selective angiogram was then obtained of the right lower extremity demonstrating occlusion of the SFA after the takeoff with reconstitution at the above-knee popliteal artery. Patient was given heparin and followed with ACTs. An 035 Glidewire advantage was then placed in an up and over fashion and the 6 F short sheath was removed and replaced with an up and over 6F RAABE sheath. Selective angiogram was again obtained demonstrating occlusion/stenosis of the right [place] perficial femoral artery. Utilizing 035 Glidewire and quick cross catheter the lesion was attempted to be crossed and utilizing an 018 Astato wire the distal cap was crossed and selective angiogram distally was obtained demonstrating good intraluminal access. Once across a 5mm spider filter was placed and utilizing a 6M Hawk one atherectomy device directional atherectomy was performed with mult iple passes. Once completed angiogram was obtained demonstrating improvement of the stenotic area. Balloon angioplasty was then performed with a 5 x 250 mm and 5 x 60 mm drug-eluting Impact balloon. Final angiogram demonstrated widely patent SFA with no residual stenosis and no evidence of dissection or pseudoaneurysm or perforation. Brisk flow was noted to the foot with anterior tibial and posterior tibial artery reconstitution and filling to the foot. All guidewires and catheters were then removed the sheath was removed and replaced with a short 6F sheath and utilizing a Vascade closure device the access was closed. Pressure was placed for hemostasis. The patient tolerated the procedure well and had palpable PT pulse and Multiphasic signal to both the DP and PT and was sent to recovery. Plan - Discharge Summary Discharge Rx Participant: Yes New Discharge Prescriptions: No Action Multivitamins, Thera [Multivitamin (formulary)] 1 tab PO DAILY Cholecalciferol [Vitamin D3 (25 Mcg = 1000 Iu)] 50 mcg PO DAILY Calcium Carbonate [Calcium] 600 mg PO DAILY Biotin 5 mg PO DAILY amLODIPine BESYLATE 5 mg PO QAM Losartan/Hydrochlorothiazide [Losartan-Hctz 100-25 mg Tab] 1 tab PO DAILY Magnesium 400 mg PO DAILY Discharge Medication List Multivitamins, Thera [Multivitamin (formulary)] 1 tab PO DAILY 07/20/17 [History] Biotin 5 mg PO DAILY 09/10/20 [History] Calcium Carbonate [Calcium] 600 mg PO DAILY 09/10/20 [History] Cholecalciferol [Vitamin D3 (25 Mcg = 1000 Iu)] 50 mcg PO DAILY 09/10/20 [History] Losartan/Hydrochlorothiazide [Losartan-Hctz 100-25 mg Tab] 1 tab PO DAILY 09/10/20 [History] Magnesium 400 mg PO DAILY 09/10/20 [History] amLODIPine BESYLATE 5 mg PO QAM 09/10/20 [History]
--- NOTE | 2021-12-05 10:25 | IR ---
EXAMINATION TYPE: IR angio lower extremity BI DATE OF EXAM: 12/05/2021 COMPARISON: NONE HISTORY: Leg pain Fluoroscopy support supplied to the referring clinician. See dictated report from vascular surgery, 24 minutes fluoroscopy time, 486 intraoperative C-arm images document the procedure
[2021-12-05 13:32] VITALS: BP 140/74; PULSE 85
== END 2021-12-05 13:32 | disposition home or self-care (01) ==
LOC: CATHCVL 05:51
PROVIDERS: ATTEND Surgery
DX: I70.201 Unspecified atherosclerosis of native arteries of extremities, right leg (principal); I74.3 Embolism and thrombosis of arteries of the lower extremities; I10 Essential (primary) hypertension; Z85.3 Personal history of malignant neoplasm of breast; Z98.41 Cataract extraction status, right eye; Z98.42 Cataract extraction status, left eye; Z98.82 Breast implant status; Z90.89 Acquired absence of other organs; Z79.899 Other long term (current) drug therapy
CPT/HCPCS: 37225; 75710; 80048; 85025; C1894 ×3; C1769 ×4; C1887; C1714; C1884; C2623 ×2; C1760; J2250; J2001; J3010; J1644; Q9966

== ENCOUNTER → 2022-09-02 | Outpatient (CLI) | payer MEDICARE ==
--- NOTE | 2022-09-03 08:08 | MM ---
Reason for Exam: Screening (asymptomatic). Last screening mammogram was performed 12 month(s) ago. Patient History: Menarche at age 9. First Full-Term at age 21. Postmenopausal. Breast cancer, age 55. Other cancer. Previous chest radiation therapy at age 55. Hormonal Contraceptives for 3 years from age 21 until age 24. Tamoxifen for 5 years from age 55 until age 60. 2001, Lumpectomy on the Left side. 03/01/2001, Radiation Therapy. Mother had breast cancer, age 78. Prior Study Comparison: 08/28/2019 Bilateral Screening Mammogram, [facility]. 08/29/2020 Bilateral Screening Mammogram, [facility]. 09/01/2021 Bilateral MG 3D screening mammo w/cad, [facility]. Tissue Density: There are scattered fibroglandular densities. Findings: Analyzed By CAD. Nose new suspicious group of microcalcifications within either breast. Post therapy changes of the left breast redemonstrated. There are 3 nodules identified within the upper outer left breast with the most lateral anterior depth nodule measuring 6 mm. The most posterior nodule measures 6 mm. In the other nodule measures 5 mm. These appear circumscribed and oval with equal density. Overall Assessment: Incomplete: need additional imaging evaluation, BI-RAD 0 Management: Diagnostic Breast Ultrasound of the left breast. A clinical breast exam by your physician is recommended on an annual basis and results should be correlated with mammographic findings. [facility] will attempt to contact patient to return for supplemental views and ultrasound if indicated. Electronically signed and approved by: Volodymyr Lopez D.O.
--- NOTE | 2022-09-03 09:39 | BD ---
EXAMINATION TYPE: Axial Bone Density DATE OF EXAM: 09/02/2022 CLINICAL HISTORY: 77 years old Female. ICD-10 CODE: M85.88 Height: 65 Weight: 162.9 FRAX RISK QUESTIONS: Alcohol (3 or more units per day): no Family History (Parent hip fracture): no Glucocorticoids (More than 3mos): no History of Fracture in Adulthood: no Secondary Osteoporosis: 1. Type 1 Diabetes: no 2. Hyperthyroidism: no 3. Menopause before 45: yes 4. Malnutrition: no 5. Chronic liver disease: no Rheumatoid Arthritis: no Current Tobacco Use: no RISK FACTORS HISTORY OF: Hip Fracture (Right/Left): no Spine Fracture: no History of Wrist Fracture: no Surgery to Spine/Hip(right/left)/Wrist (right/left): no Family History of Osteoporosis: no Active: yes Diet low in dairy products/other sources of calcium: no Postmenopausal woman: yes Take estrogen and/or progesterone medications: no Lost more than 2 inches in height since high school: no Frequent falls: no Poor Health: no Hyperparathyroidism: no Adrenal Insufficiency: no MEDICATIONS: Prednisone or other steroids: no Thyroid Medications:no Osteoporosis Medications: no Additional Medications: BP Meds x2, Multi Vit, Calcium, Vit D, Biotin, Additional History: Breast Ca 2001 with radiation EXAM MEASUREMENTS: Bone mineral densitometry was performed using the Flowgram System. Bone mineral density as measured about the Lumbar spine is: ----- L1-L4(G/cm2): T Score Values are 1.305as follows: ----- L1: 0.3 ----- L2: -0.8 ----- L3: 0.9 ----- L4: 3.4 ----- L1-L4: 1.0 Z Score Values are as follows: ----- L1: 1.8 ----- L2: 0.7 ----- L3: 2.5 ----- L4: 4.9 ----- L1-L4: 2.6 Bone mineral density has: increased 3.7 % since study of: 09/16/2001 Bone mineral density about the R hip (g/cm2): 0.808 Bone mineral density about the L hip (g/cm2): 0.908 T Score values are as follows: -----R Neck: -1.7 -----L Neck: -0.9 -----R Total: -1.6 -----L Total: -0.8 Z Score values are as follows: -----R Neck: 0.2 -----L Neck: 1.0 -----R Total: 0.2 -----L Total: 1.0 Bone mineral density has: decreased 19.4 % since study of: 09/16/2001 FRAX%s: The graph provided illustrates a 14.3% chance for a major osteoporotic fx and a 3.7% chance f or the hips probability for fx in 10 years time. IMPRESSION: Osteopenia (T Score between -2.5 and -1). There is slightly increased risk of fracture and the patient may be considered for treatment. Re-Screen 2-5 years. NOTE: T-SCORE=SD OF THE YOUNG ADULT MEAN.
== END | disposition home or self-care (01) ==
LOC: RADBDWWP 10:29
PROVIDERS: ATTEND Obstetrics & Gynecology
DX: Z12.31 Encounter for screening mammogram for malignant neoplasm of breast (principal); M85.89 Other specified disorders of bone density and structure, multiple sites; Z78.0 Asymptomatic menopausal state; Z80.3 Family history of malignant neoplasm of breast; Z85.3 Personal history of malignant neoplasm of breast
CPT/HCPCS: 77063; 77067; 77080

== ENCOUNTER → 2023-06-09 | Outpatient (CLI) | payer MEDICARE ==
--- NOTE | 2023-06-09 15:01 | US ---
EXAMINATION TYPE: US venous doppler duplex LE LT DATE OF EXAM: 06/09/2023 2:46 PM COMPARISON: NONE CLINICAL INDICATION: Female, 78 years old with history of R22.42 SWELLING,MASS AND LUMP; lump/swellin g left lat calf, worse as day progresses x 3-4 weeks SIDE PERFORMED: Left TECHNIQUE: The lower extremity deep venous system is examined utilizing real time linear array sonog tri with graded compression, doppler sonography and color-flow sonography. VESSELS IMAGED: Common Femoral Vein Deep Femoral Vein Greater Saphenous Vein * Femoral Vein Popliteal Vein Small Saphenous Vein * Proximal Calf Veins (* superficial vessels) Left Leg: Negative for DVT There is soft tissue edema. IMPRESSION: 1. No diagnostic evidence of DVT as visualized.
== END | disposition home or self-care (01) ==
LOC: RADUSWWP 13:15
PROVIDERS: ATTEND Family Medicine
DX: R22.42 Localized swelling, mass and lump, left lower limb (principal)

== ENCOUNTER → 2023-07-01 | Outpatient (CLI) | payer MEDICARE ==
[2023-07-01 11:56] LABS: African American GFR (CKD) >90 (>60 ml/min/1.73 sqM); Blood Urea Nitrogen 20 mg/dL (7-17); Non-African American GFR(CKD) 80 (>60 ml/min/1.73 sqM)
--- NOTE | 2023-07-02 13:41 | CT ---
EXAMINATION TYPE: CT angio abd aorta w/Runoff DATE OF EXAM: 07/01/2023 COMPARISON: 08/07/2021 HISTORY: pain in left lateral and anterior leg with lumps, bi lateral toe tingling CT DLP: 1449 mGycm CONTRAST: CTA thoracic and abdominal aorta with 3-D reconstruction is performed and with IV Contrast, patient i njected with 125 mL of Isovue 370. Contrast CTA of the abdominal aorta with runoff of the lower extremity arterial system was performed from the lung bases through the ankles and feet. 3-D reconstruction imaging obtained at a separate wo rkstation. ABDOMINAL AORTA: Scattered atheromatous change. No evidence for aneurysm or dissection. Branch vessel s including the renal arteries, SMA and celiac are patent.. Iliac vessels: Atheromatous plaque of the common iliac arteries, external iliac arteries and internal iliac arteries. Again noted is proximal occlusion of the left internal iliac artery unchanged from p rior study. Femoral arteries: Atheromatous changes of the common femoral arteries without evidence for occlusive disease. There is multifocal stenosis greater than 70% noted to involve the bilateral superficial art eries with long segment disease seen. Occlusion distal left SFA with recanalization at the level of t he popliteal artery. Similar occlusion distal right SFA with recanalization of the popliteal artery. Popliteal arteries: Popliteal arteries are patent bilaterally with only mild plaque formation noted. Below the knee arteries: Peroneal arteries are patent bilaterally extending to the level of the ankle s. There is occlusion of the anterior and posterior tibial arteries bilaterally. LIVER/GB- No significant abnormality is seen. PANCREAS- No significant abnormality is seen. SPLEEN- No significant abnormality is seen. ADRENALS- No significant abnormality is seen. KIDNEYS/BLADDER- No significant abnormality is seen. BOWEL- No Significant abnormality . Small hiatal hernia is seen. GENITAL ORGANS: Right ovarian cystic lesion measuring 4.2 cm. Left ovarian cystic lesion measuring 3. 5 cm. LYMPH NODES- No greater than 1cm abdominal or pelvic lymph nodes are appreciated. OSSEOUS STRUCTURES- No significant abnormality is seen. OTHER- No significant abnormality is seen. IMPRESSION- 1. Mild progression of extensive peripheral vascular occlusive disease.
== END | disposition home or self-care (01) ==
LOC: RADCTMAIN 10:54
PROVIDERS: ATTEND Surgery
DX: I70.213 Atherosclerosis of native arteries of extremities with intermittent claudication, bilateral legs (principal); I99.8 Other disorder of circulatory system
CPT/HCPCS: 82565; 84520; 75635; 36415; Q9967

== ENCOUNTER → 2023-09-10 | Outpatient (CLI) | payer MEDICARE ==
--- NOTE | 2023-09-10 10:03 | MM ---
Reason for Exam: Hx of breast cancer, conservation therapy. Last screening mammogram was performed 12 month(s) ago. Patient History: Menarche at age 9. First Full-Term at age 21. Postmenopausal. Breast cancer, left, age 55. Previous chest radiation therapy at age 55. Hormonal Contraceptives for 3 years from age 21 until age 24. Tamoxifen for 5 years from age 55 until age 60. 2001, Lumpectomy on the Left side. 03/01/2001, Radiation Therapy. Mother had breast cancer, age 78. Prior Study Comparison: 07/15/2011 Bilateral Screening Mammogram, [facility]. 05/26/2018 Bilateral Screening Mammogram, [facility]. 08/28/2019 Bilateral Screening Mammogram, [facility]. 09/01/2021 Bilateral MG 3D screening mammo w/cad, [facility]. 09/02/2022 Bilateral MG 3D screening mammo w/cad, [facility]. Tissue Density: The breasts are heterogeneously dense, which may obscure small masses. Findings: Analyzed By CAD. Chronic nodularity unchanged from prior examinations. Postoperative distortion and dystrophic calcifications upper inner left breast compatible with prior lumpectomy and radiation therapy change. No suspicious microcalcifications or masses within either breast. Overall Assessment: Benign, BI-RAD 2 Management: Screening Mammogram of both breasts in 1 year. . Results were given to the patient verbally at the time of exam. Patient should continue monthly self-breast exams. A clinical breast exam by your physician is recommended on an annual basis. This exam should not preclude additional follow-up of suspicious palpable abnormalities. Note on Inga scores and lifetime risk: 1. A Inga score greater than 3% is considered moderate risk. If this is the case, consider specialist referral to assess eligibility for a risk reducing agent. 2. If overall lifetime risk for the development of breast cancer is 20% or higher, the patient may qualify for future screening with alternating mammogram and breast MRI. Electronically signed and approved by: Da Hayes M.D. Radiologis
== END | disposition home or self-care (01) ==
LOC: RADMAMWWP 09:36
PROVIDERS: ATTEND Family Medicine
DX: R92.8 Other abnormal and inconclusive findings on diagnostic imaging of breast (principal); R92.333 Mammographic heterogeneous density, bilateral breasts; Z78.0 Asymptomatic menopausal state; Z80.3 Family history of malignant neoplasm of breast
CPT/HCPCS: 77066; G0279; 77062

== ENCOUNTER → 2024-09-15 | Outpatient (CLI) | payer MEDICARE ==
--- NOTE | 2024-09-15 18:01 | MM ---
Reason for Exam: Screening (asymptomatic). Last mammogram was performed 1 year(s) and 1 month(s) ago. Patient History: Menarche at age 9. First Full-Term at age 21. Postmenopausal. Breast cancer, left, age 55. Previous chest radiation therapy at age 55. Hormonal Contraceptives for 3 years from age 21 until age 24. Tamoxifen for 5 years from age 55 until age 60. 2001, Lumpectomy on the Left side. 03/01/2001, Radiation Therapy. Mother had breast cancer, age 78. Prior Study Comparison: 09/01/2021 Bilateral MG 3D screening mammo w/cad, [facility]. 09/02/2022 Bilateral MG 3D screening mammo w/cad, [facility]. 09/10/2023 Bilateral MG 3D diag mammo w/cad [facility], [facility]. Tissue Density: There are scattered areas of fibroglandular density. Findings: Analyzed By CAD. Postsurgical and posttraumatic changes left breast. On the left MLO view, there is an area of asymmetric density above the posterior surgical scar process which is more pronounced from prior. Further evaluation recommended. On the right, there are groups and regional calcifications in the upper outer quadrant middle depth which appear increased. These may represent vascular calcifications and magnification views are recommended to confirm. Otherwise, no significant change. Overall Assessment: Incomplete: need additional imaging evaluation, BI-RAD 0 Management: Special View Mammogram of both breasts. Magnification views on the right and spot 3-D views on the left. [facility] will attempt to contact patient to return for supplemental views and ultrasound if indicated. [facility], , 09/15/2024 5:58 PM. Electronically signed and approved by: Mp Foreman M.D. Radiologist
== END | disposition home or self-care (01) ==
LOC: RADMAMWWP 10:32
PROVIDERS: ATTEND Family Medicine
DX: Z12.31 Encounter for screening mammogram for malignant neoplasm of breast (principal); R92.323 Mammographic fibroglandular density, bilateral breasts; R92.1 Mammographic calcification found on diagnostic imaging of breast; Z78.0 Asymptomatic menopausal state; Z80.3 Family history of malignant neoplasm of breast; Z92.0 Personal history of contraception
CPT/HCPCS: 77063; 77067